=== PATIENT | male | born 1965 | race Caucasian/White ===

== ENCOUNTER 2017-01-26 10:03 | Emergency (ER) | payer MEDICARE ==
[2017-01-26 10:42] LABS: BASOPHILS 0.3 %; BASOPHILS ABSOLUTE 0.02 10/3/uL (0.0-0.16); EOSINOPHILS 3.2 %; HEMATOCRIT 42.6 % (40.0-51.0); HEMOGLOBIN 14.6 g/dL (13.6-17.8); IMMATURE GRANULOCYTES 0.2 %; IMMATURE GRANULOCYTES ABSOLUTE 0.01 10/3/uL (0.0-0.11); LYMPHOCYTES 22.8 %; LYMPHOCYTES ABSOLUTE 1.41 10/3/uL (0.67-4.30); MEAN CORPUS HGB CONC 34.3 g/dL (32.0-36.0); MEAN CORPUSCULAR HEMOGLOB 28.5 pg (26.0-34.0); MONOCYTES 11.2 %; MONOCYTES ABSOLUTE 0.69 10/3/uL (0.21-1.20); NEUTROPHILS 62.3 %; NEUTROPHILS ABSOLUTE 3.85 10/3/uL (2.02-8.40); PLATELET COUNT 349 10/3/uL (150-400); RBC DISTRIBUTION WIDTH 13.6 % (12.0-16.0); RED CELL COUNT 5.13 10/6/uL (4.7-6.1); WHITE BLOOD CELLS 6.2 10/3/uL (4.5-10.5)
[2017-01-26 10:43] LABS: MANUAL DIFF NO %
[2017-01-26 10:46] LABS: INTERNATIONAL NORMAL RATI 1.1 UNITS (-); PROTIME (NOT ORD) 14.1 SEC (12.0-14.5)
[2017-01-26 10:56] LABS: ALBUMIN 3.5 G/DL (3.5-5.0); ALKALINE PHOSPHATASE 113 U/L (45-117); BUN (BLOOD UREA NITROGEN) 19 MG/DL (6-23); CALCIUM, SERUM 8.8 MG/DL (8.5-10.4); CHLORIDE, SERUM 108 MMOL/L (96-112); CO2 (CARBON DIOXIDE) 24 MMOL/L (24-34); CREATININE 0.99 MG/DL (0.70-1.30); GFR AFRICAN AMERICAN 103 ML/MIN (>=60); GFR NON AFRICAN AMERICAN 89 ML/MIN (>=60); GLOBULIN 3.6 G/DL (2.5-4.1); GLUCOSE, SERUM 93 MG/DL (60-99); POTASSIUM, SERUM 3.6 MMOL/L (3.5-5.3); SGOT(AST) 22 U/L (5-40); SGPT(ALT) 19 U/L (5-65); SODIUM, SERUM 142 MMOL/L (135-148); TOTAL BILIRUBIN 0.3 MG/DL (0-1.2); TOTAL PROTEIN 7.1 G/DL (6.0-8.5); TROPONIN I 0.02 NG/ML (<0.05)
== END 2017-01-26 12:15 | disposition home or self-care (01) ==
LOC: ER 10:03
PROVIDERS: Emergency Medicine
DX: I10 Essential (primary) hypertension (principal); R55 Syncope and collapse; M79.606 Pain in leg, unspecified; R53.1 Weakness; I25.2 Old myocardial infarction; Z95.5 Presence of coronary angioplasty implant and graft
CPT/HCPCS: 70450; 71010; 80053; 84484; 85025; 85610; 93005; 96374; 99285; A9270-GY; J1885

== ENCOUNTER 2017-01-31 18:19 | Emergency (ER) | payer MEDICARE ==
[2017-01-31 18:46] LABS: BASOPHILS 0.2 %; BASOPHILS ABSOLUTE 0.02 10/3/uL (0.0-0.16); EOSINOPHILS 1.1 %; EOSINOPHILS ABSOLUTE 0.13 10/3/uL (0.0-0.53); ER CBC TAT 0 Hrs 07 Mins; HEMATOCRIT 46.2 % (40.0-51.0); HEMOGLOBIN 15.6 g/dL (13.6-17.8); IMMATURE GRANULOCYTES 0.1 %; IMMATURE GRANULOCYTES ABSOLUTE 0.01 10/3/uL (0.0-0.11); LYMPHOCYTES 7.7 %; LYMPHOCYTES ABSOLUTE 0.91 10/3/uL (0.67-4.30); MANUAL DIFF NO %; MEAN CORPUS HGB CONC 33.8 g/dL (32.0-36.0); MEAN CORPUSCULAR HEMOGLOB 28.4 pg (26.0-34.0); MEAN CORPUSCULAR VOLUME 84.2 fL (80-100); MEAN PLATELET VOLUME 9.3 fL (9.2-13.0); MONOCYTES ABSOLUTE 0.95 10/3/uL (0.21-1.20); NEUTROPHILS 82.9 %; NEUTROPHILS ABSOLUTE 9.86 10/3/uL (2.02-8.40); PLATELET COUNT 370 10/3/uL (150-400); RBC DISTRIBUTION WIDTH 13.8 % (12.0-16.0); RED CELL COUNT 5.49 10/6/uL (4.7-6.1); WHITE BLOOD CELLS 11.9 10/3/uL (4.5-10.5)
[2017-01-31 18:55] LABS: INTERNATIONAL NORMAL RATI 1.1 UNITS (-); PROTIME (NOT ORD) 13.6 SEC (12.0-14.5)
[2017-01-31 18:56] LABS: PARTIAL THROMBO TIME 30.1 SEC (22.5-37.2)
[2017-01-31 19:02] LABS: BUN (BLOOD UREA NITROGEN) 16 MG/DL (6-23); CALCIUM, SERUM 9.2 MG/DL (8.5-10.4); CHEST PAIN PROFILE TAT 0 Hrs 23 Mins; CHLORIDE, SERUM 103 MMOL/L (96-112); CO2 (CARBON DIOXIDE) 26 MMOL/L (24-34); CREATININE 0.81 MG/DL (0.70-1.30); GFR AFRICAN AMERICAN 121 ML/MIN (>=60); GFR NON AFRICAN AMERICAN 104 ML/MIN (>=60); GLUCOSE, SERUM 95 MG/DL (60-99); POTASSIUM, SERUM 3.7 MMOL/L (3.5-5.3); SODIUM, SERUM 140 MMOL/L (135-148); TROPONIN I <0.02 NG/ML (<0.05)
== END 2017-02-01 02:19 | disposition home or self-care (01) ==
LOC: ER 18:19
PROVIDERS: Emergency Medicine
DX: K50.90 Crohn's disease, unspecified, without complications (principal); Z87.891 Personal history of nicotine dependence; I25.2 Old myocardial infarction; I10 Essential (primary) hypertension; Z98.61 Coronary angioplasty status
CPT/HCPCS: 71020; 80048; 83735; 84484; 85025; 85610; 85730; 93005; 96374; 96375; 99285; J1170; J1980; J2405; J2920

== ENCOUNTER 2017-04-24 17:05 | Emergency (ER) | payer MEDICARE ==
[2017-04-24 16:17] LABS: BASOPHILS 0.1 %; BASOPHILS ABSOLUTE 0.01 10/3/uL (0.0-0.16); EOSINOPHILS 1.7 %; EOSINOPHILS ABSOLUTE 0.12 10/3/uL (0.0-0.53); HEMOGLOBIN 12.8 g/dL (13.6-17.8); IMMATURE GRANULOCYTES 0.3 %; IMMATURE GRANULOCYTES ABSOLUTE 0.02 10/3/uL (0.0-0.11); LYMPHOCYTES 12.7 %; MANUAL DIFF NO %; MEAN CORPUS HGB CONC 32.8 g/dL (32.0-36.0); MEAN CORPUSCULAR HEMOGLOB 26.5 pg (26.0-34.0); MEAN CORPUSCULAR VOLUME 80.7 fL (80-100); MEAN PLATELET VOLUME 9.3 fL (9.2-13.0); MONOCYTES 11.3 %; NEUTROPHILS 73.9 %; NEUTROPHILS ABSOLUTE 5.24 10/3/uL (2.02-8.40); PLATELET COUNT 340 10/3/uL (150-400); RBC DISTRIBUTION WIDTH 17.6 % (12.0-16.0); RED CELL COUNT 4.83 10/6/uL (4.7-6.1); WHITE BLOOD CELLS 7.1 10/3/uL (4.5-10.5)
[2017-04-24 16:30] LABS: BUN (BLOOD UREA NITROGEN) 15 MG/DL (6-23); CALCIUM, SERUM 8.4 MG/DL (8.5-10.4); CHLORIDE, SERUM 110 MMOL/L (96-112); CO2 (CARBON DIOXIDE) 27 MMOL/L (24-34); CREATININE 0.74 MG/DL (0.70-1.30); GFR AFRICAN AMERICAN 125 ML/MIN (>=60); GFR NON AFRICAN AMERICAN 108 ML/MIN (>=60); GLUCOSE, SERUM 93 MG/DL (60-99); POTASSIUM, SERUM 4.1 MMOL/L (3.5-5.3); SODIUM, SERUM 141 MMOL/L (135-148)
== END 2017-04-24 19:23 | disposition home or self-care (01) ==
LOC: ER 17:05
PROVIDERS: Nurse Practitioner
DX: S09.90XA Unspecified injury of head, initial encounter (principal); R07.9 Chest pain, unspecified; M54.2 Cervicalgia; R10.9 Unspecified abdominal pain; M25.522 Pain in left elbow; I10 Essential (primary) hypertension; I25.2 Old myocardial infarction; F17.200 Nicotine dependence, unspecified, uncomplicated; Z95.5 Presence of coronary angioplasty implant and graft; W11.XXXA Fall on and from ladder, initial encounter
CPT/HCPCS: 70450; 71260; 72125; 73080-LT; 74177; 80048; 85025; 93005; 96374; 96375; 96376; 99285; J1170; J2405; Q9967

== ENCOUNTER 2017-04-28 16:29 | Inpatient (IN) | payer MEDICARE ==
--- NOTE | ~2017-04-28 | HP ---
History And Physical [id number] [facility] [place]. [address] NAME: BENITO MILLER : 69 STATUS : ADM Raphael PAT#: [id number] AGE: 52 ADM/REG DATE : 04/28/17 MR#: [id number] REPORT SERV DATE: 04/29/17 DICTATED BY: RANCHO CORLEY DATE: 04/28/17 REPORT STATUS : Draft TRANSCRIBED BY: MODL DATE: 04/28/17 DATE OF ADMISSION: 04/28/2017 CHIEF COMPLAINT: Abdominal pain, nausea with vomiting. HISTORY OF PRESENT ILLNESS: This is a 52-year-old male with a history of Crohn's disease for about five years now; history of colon cancer, status post partial colectomy, who also has coronary artery disease with stents and hypertension who presents to the emergency room at [facility] with the above-mentioned complaint. History is obtained from the patient and reviewing data available on the [employer] system. According to Mr. Miller, he was initially here on Saturday to this emergency room after he fell off a ladder. At that time, he had some cramping in his abdomen which had been there for about two days then, he was evaluated for all skeletal injuries and discharged to home. The next day, was when he started having lower abdominal cramping pain which slowly increased in intensity over the next couple of days. Saturday and Saturday, the pain actually got to a point where it was unbearable, and Saturday, he said, he was unable to keep anything down and had been vomiting constantly. He has also been burping, unable to pass gas, and is in considerable discomfort and pain. It was also associated with shaking chills on Saturday. Saturday, he decided to come to the emergency room to be evaluated. In the emergency room, initial workup revealed moderate severity partial small-bowel obstruction, possibly due to a flare up of his inflammatory bowel disease. Hospitalist Service is asked to admit him for further evaluation and treatment. He also had uncontrolled hypertension. At the time of my evaluation, he denied any chest pain or palpitations. He had no orthopnea. He was in considerable discomfort from his abdominal pain which was cramping colicky in nature and bound him up. He denied any cough, hemoptysis, night sweats, or weight loss. He has not had any recent loss of consciousness, although he fell off ladder. He did have chills, but has not recorded any temperatures. Did have nausea and vomiting which was essentially bilious stuff. No history of hematemesis, hematochezia, or hematuria at this time. No other history of recent travel or exposures other than those mentioned above. PAST MEDICAL HISTORY: Significant for Crohn's disease which he has had for about five years now. He had been tried earlier at different place on Humira and Remicade, and with both, he went into renal failure and had to be transferred to [place] for inpatient treatment. However, he recovered. He has essential hypertension, coronary artery disease with stent placement, and history of colon cancer, status post partial colectomy. He also has a history of appendectomy, cholecystectomy, and an L4-S1 fusion. SOCIAL HISTORY: He has about 25- to 09-[id number] year history of smoking, continues to do so. Does not use alcohol or any recreational drugs. He is disabled at this time. FAMILY HISTORY: Noncontributory. History And Physical [address] [address] NAME: BENITO MILLER : [birth year] STATUS : ADM Raphael PAT#: [id number] AGE: 52 ADM/REG DATE : 04/28/17 MR#: [id number] REPORT SERV DATE: 04/29/17 DICTATED BY: RANCHO CORLEY DATE: 04/28/17 REPORT STATUS : Draft TRANSCRIBED BY: GUNNER DATE: 04/28/17 MEDICATIONS: At home were reviewed by me in the chart today and reordered by me. REVIEW OF SYSTEMS: As in history of present illness. All other systems were reviewed in detail and are quite unremarkable. PHYSICAL EXAMINATION: GENERAL: This is a pleasant 52-year-old, not in any acute distress. HEENT: His head is atraumatic, normocephalic. He is alert, awake, and oriented to time, place, and person. HEENT: His pupils are equal, reacting to light, and accommodating. External ocular muscles are intact. Membranes are moist and pink. Sclerae are nonicteric. NECK: Supple with no jugular venous distention, lymphadenopathy, or thyromegaly. LUNGS: Clear to auscultation with no wheezes, rubs, or crackles. HEART: Heart sounds are regular with no murmurs, rubs, or gallops. ABDOMEN: Soft, nontender. Bowel sounds present. EXTREMITIES: Show no cyanosis, clubbing, or edema. NEUROLOGIC: Grossly intact. No focal sensory or motor deficits. He is able to move all four extremities. Gait was not examined. VITAL SIGNS: His temperature today is 97.6, pulse 78, respirations 18 a minute, blood pressure is 144/72, oxygen saturations are 100% on room air. LABORATORY DATA: Reviewed on the [employer] system showed a normal CMP with a glucose of 103. Albumin was 3.4, alkaline phosphatase 127, ALT and AST were within normal limits. Lipase was 121. CBC was essentially within normal limits. His white blood cell count was 8700. Urinalysis was grossly unremarkable. Films of the CT scan of his abdomen and pelvis were reviewed by me on the PACS and official radiology report by Dr. Gomes was also reviewed. According to his report, there is moderate severity partial small-bowel obstruction, most possibly due to a flare-up of his Crohn's disease. IMPRESSION: 1. Abdominal pain. 2. Partial small-bowel obstruction. 3. Crohn's disease with exacerbation. 4. Uncontrolled hypertension. 5. Coronary artery disease with stents. 6. History of colon cancer, status post partial colectomy. PLAN: We will admit Mr. Miller to the Hospitalist Service to the Med/Surg telemetry unit for a 24-hour observation period. We will keep him n.p.o. at this time, start him on IV fluids for volume resuscitation. We will also place an NG tube to decompress his abdomen and then go ahead and consult Gastroenterology Service to evaluate him in the morning. He has recently moved to [facility] and has not established care with any microsoft windows engineer in this area. Meanwhile, we will go ahead and start him on intravenous glucocorticoids and History And Physical [address] [place]. [address] NAME: BENITO MILLER : [birth year] STATUS : ADM Raphael PAT#: [id number] AGE: 52 ADM/REG DATE : 04/28/17 MR#: [id number] REPORT SERV DATE: 04/29/17 DICTATED BY: RANCHO CORLEY DATE: 04/28/17 REPORT STATUS : Draft TRANSCRIBED BY: GUNNER DATE: 04/28/17 IV antibiotics to include metronidazole and a fluoroquinolone. We will also go ahead and consult General Surgery due to his partial small-bowel obstruction. I am concerned that he has not passed any gas in more than three days according to him. For his blood pressure control, we will restart him on his medications and provide hydralazine intravenously on an as-needed basis. Mr. Miller admits to not being very compliant with his medications. I have encouraged him to change his ways and become more compliant with medications as he presented today with blood pressure of 219/103. Since then, it had dropped. This could also be from pain. We will go ahead and establish pain control with morphine intravenously on small frequent doses on an as needed basis. We will also place him on unfractionated heparin for DVT prophylaxis while here. We will follow all this with repeat chemistry and CBC in the morning. I have discussed the above plans with the patient. His questions were answered and he is agreeable to the above recommendations. Hospitalist Service will be following him during his stay here. /GUNNER Rancho Corley M.D. / [id number] CC: Elisa Gaines M.D.
--- NOTE | ~2017-04-28 | DS ---
Discharge Summary [address] [place]. [address] NAME: BENITO MILLER : [birth year] STATUS : DIS IN PAT#: [id number] AGE: 52 ADM/REG DATE : 04/29/17 MR#: [id number] REPORT SERV DATE: 05/01/17 DICTATED BY: OTIS GARCIA DATE: 05/01/17 REPORT STATUS : Draft TRANSCRIBED BY: MODL DATE: 05/01/17 ADMISSION DATE: 04/29/2017 DISCHARGE DATE: 05/01/2017 DISCHARGE DIAGNOSES: 1. Partial small bowel obstruction. 2. Acute exacerbation of Crohn's disease. 3. Hypertension. 4. Allergic rhinitis. CONSULTANTS DURING THIS HOSPITALIZATION: Dr. Donald Varela of Gastroenterology. INVASIVE PROCEDURES DONE DURING THIS HOSPITALIZATION: None. BRIEF HISTORY OF PRESENT ILLNESS: The patient is a 52-year-old white male with known Crohn's disease, presented with abdominal pain, nausea, and vomiting. For detailed history and physical exam, please see note dictated by Dr. Rancho Quintana on 04/29/2017. HOSPITAL COURSE: After being admitted to the hospital, initially, the patient was kept n.p.o., small bowel follow-through was ordered which revealed transit time to be two hours. There were several abnormal distended loops of small intestines that are not producing severe obstruction, the most prominent one is located in the left lower quadrant and correlates with the findings of the CT scan consistent with Crohn's disease. There is also some distention of the loops of small intestine in the right abdomen identified at the two- hour image. Additional images were obtained, five hours and nine hours. The abnormalities in the small bowel within the left lower quadrant are still visible on the nine-hour image. This patient also had multiple stools. He was tolerating a diet and he feels well enough and he wants to go home and recover in the outpatient setting. DISCHARGE DISPOSITION: Home. DISCHARGE ACTIVITY: As tolerated. DISCHARGE DIET: GI soft. DISCHARGE MEDICATIONS: Lisinopril 20 mg twice daily, Claritin 10 mg once daily, prednisone taper as per GI, Lialda 4.8 g p.o. with breakfast, Flagyl 500 mg t.i.d., hydrochlorothiazide 25 mcg once daily, artificial tears. DISCHARGE FOLLOWUP: With Dr. Juan Frey in four weeks. With primary care physician as needed. More than 30 minutes spent planning this patient's discharge, reconciling medications, writing prescriptions, discussing hospital care, and followup with the patient and documenting this discharge. Discharge Summary [address] [place] [place]. [address] NAME: BENITO MILLER : 69 STATUS : DIS IN PAT#: [id number] AGE: 52 ADM/REG DATE : 04/29/17 MR#: [id number] REPORT SERV DATE: 05/01/17 DICTATED BY: OTIS GARCIA DATE: 05/01/17 REPORT STATUS : Draft TRANSCRIBED BY: GUNNER DATE: 05/01/17 DICTATED BY: Lina Sagastume/GUNNER Otis Garcia M.D. / [id number] CC: Lina Sagastume M.D.
--- NOTE | ~2017-04-28 | CN ---
Consultation Report [facility] [address] [place]. [address] NAME: BENITO MILLER : 69 STATUS : ADM IN PAT#: [id number] AGE: 52 ADM/REG DATE : 04/29/17 MR#: [id number] REPORT SERV DATE: 04/29/17 DICTATED BY: HEENA LAND DATE: 04/29/17 REPORT STATUS : Draft TRANSCRIBED BY: MODL DATE: 04/29/17 GI CONSULTATION DATE OF CONSULTATION: 04/29/2017 REASON FOR CONSULTATION: Evaluation and management of Crohn's disease and partial small bowel obstruction. HISTORY OF PRESENT ILLNESS: Mr. Miller is a 52-year-old male patient, whom we have received in consultation to see for Crohn's disease. He is new to our service. He came into [facility] with a chief complaint of abdominal pain, cramps, nausea and vomiting. He has a history of Crohn's disease. He reports diagnosis roughly five years ago as well as a history of colon cancer status post chemotherapy as well as partial colectomy per his report. He states that he has had abdominal cramping for several days. He was seen in the [facility] emergency room on 04/24/2017, that he incurred a fall from a ladder. His CT scan did show up on 04/24/2017 some dilation of a small intestine; however, he was subsequently discharged home only to return with what he states as increased cramping. No bowel movement for the last five days which he typically states he has loose stools. The pain became unbearable, he was unable to pass gas. He had associated nausea and some shaking chills, but no documented fever. He underwent a CT scan on admission, no contrast, which did show abnormal small bowel pattern with multiple short segments of dilated small bowel with intervening short segments of decreased caliber of small bowel as well as multiple segments of thickened nondilated small-bowel and hazy infiltration of the small bowel mesentery suspect secondary to a flare of his inflammatory bowel disease. He had nondilated large bowel throughout. The patient states that he has had a recent lengthy hospitalization initially that began at [facility] in [place], [place]; and subsequently was transferred to [facility], this was in 2016, which he states was secondary to his Crohn's disease. He states he was in [place] for roughly 60 days. He was discharged there on an oral medication for his Crohn's, but states that secondary to cost, he has not been on any type of medication for his Crohn's for several months. He states to me that he takes daily prednisone roughly 20 mg, and has done this for the last three to four years. He has a history of possibly being on Humira and Remicade dictated by the hospitalist, but he did not mention either one of these medications to me. He states his last colonoscopy was while he was in the [facility] last year. He also tells me that he has a diagnosis of Crohn's as well as ulcerative colitis. I have discussed with him based on CT findings, we will continue his steroids. We will obtain serial KUBs, possibility of a small-bowel follow-through, as well as start him on mesalamine product. He also states that he smokes which I have encouraged cessation. PAST MEDICAL HISTORY: Positive for Crohn's and questionable ulcerative colitis, colon cancer status post chemotherapy, hypertension, coronary artery disease with cardiac stents, recent fall, tobacco abuse, CT, and chipped bone in the left elbow. PAST SURGICAL HISTORY: Includes appendectomy, cholecystectomy, partial bowel resection, and Consultation Report [address] [place]. [address] NAME: BENITO MILLER : 69 STATUS : ADM IN [facility]#: [id number] AGE: 52 ADM/REG DATE : 04/29/17 MR#: [id number] REPORT SERV DATE: 04/29/17 DICTATED BY: HEENA LAND DATE: 04/29/17 REPORT STATUS : Draft TRANSCRIBED BY: GUNNER DATE: 04/29/17 back surgery. FAMILY HISTORY: Noncontributory from a GI standpoint, specifically he denies inflammatory bowel disease. SOCIAL HISTORY: He is disabled. Works at odd jobs. He denies any illicit drugs. He states occasional alcohol. Positive for tobacco use. ALLERGIES: NO KNOWN ALLERGIES. HOME MEDICATIONS: Artificial Tears, Claritin, prednisone, hydrochlorothiazide, and lisinopril. REVIEW OF SYSTEMS: A 10-point review of systems has been obtained with pertinent positives being addressed in the history of present illness. PHYSICAL EXAMINATION: VITAL SIGNS: Temperature 98.3, pulse 90, respirations 21, and blood pressure 128/77. NEUROLOGIC: Reveals an alert, male, resting in bed with no obvious focal deficits. GENERAL: Cooperative, in no apparent distress. PSYCH: Awake, alert, and oriented x3. HEAD, EARS, EYES, NOSE, AND THROAT: Anicteric. Pupils are equal, round, and reactive to light and accommodation. Normocephalic and atraumatic. NECK: No JVD. No palpable nodes. CARDIOVASCULAR SYSTEM: Regular rate and rhythm. S1 and S2. No murmurs, rubs, gallops, S3, or S4 appreciated. ABDOMEN: Soft and nondistended. He has very minimal tenderness to palpation without rebound or guarding. No organomegaly was appreciated. He does have active bowel sounds in all four quadrants. EXTREMITIES: No edema. Normal distal pulses. SKIN: Warm, dry, and intact. PERTINENT LABORATORY DATA: Sodium 140, potassium 4.3, BUN is 17, and creatinine is 0.73. White count was 7.1, hemoglobin 12.7, hematocrit 39.2, and platelet count 346. Total bilirubin 0.3. Alkaline phosphatase 127, ALT 35, and AST 30. ASSESSMENT: 1. Abdominal pain, cramping. 2. Partial small bowel obstruction. 3. Crohn's disease with exacerbation. 4. History of colon cancer status post chemo and questionable bowel resection. PLAN: 1. Repeat KUB and obtain serial imaging daily. Consultation Report [address] [place]. [address] NAME: BENITO MILLER : 69 STATUS : ADM IN PAT#: [id number] AGE: 52 ADM/REG DATE : 04/29/17 MR#: [id number] REPORT SERV DATE: 04/29/17 DICTATED BY: HEENA LAND DATE: 04/29/17 REPORT STATUS : Draft TRANSCRIBED BY: MODL DATE: 04/29/17 2. We will check a sedimentation rate and C-reactive protein. 3. We will obtain records from [facility]. 4. We will begin him on Lialda 4.8 g p.o. daily. 5. Pain and nausea control. 6. We will decrease his steroids to 20 mg IV q.6. 7. Questionable small-bowel follow-through at some point; however, Surgery is following him also and we will likely defer to their expertise. We will follow. ROD/GUNNER Olga NICKY Watt / [id number] CC: Chet Steven M.D.
[2017-04-28 16:52] LABS: BASOPHILS 0.3 %; BASOPHILS ABSOLUTE 0.03 10/3/uL (0.0-0.16); EOSINOPHILS 3.6 %; EOSINOPHILS ABSOLUTE 0.31 10/3/uL (0.0-0.53); ER CBC TAT 0 Hrs 07 Mins; HEMATOCRIT 41.9 % (40.0-51.0); HEMOGLOBIN 13.7 g/dL (13.6-17.8); IMMATURE GRANULOCYTES 0.2 %; IMMATURE GRANULOCYTES ABSOLUTE 0.02 10/3/uL (0.0-0.11); LYMPHOCYTES 15.2 %; LYMPHOCYTES ABSOLUTE 1.33 10/3/uL (0.67-4.30); MEAN CORPUS HGB CONC 32.7 g/dL (32.0-36.0); MEAN CORPUSCULAR HEMOGLOB 26.4 pg (26.0-34.0); MEAN CORPUSCULAR VOLUME 80.7 fL (80-100); MEAN PLATELET VOLUME 9.2 fL (9.2-13.0); MONOCYTES 10.7 %; MONOCYTES ABSOLUTE 0.93 10/3/uL (0.21-1.20); NEUTROPHILS ABSOLUTE 6.11 10/3/uL (2.02-8.40); PLATELET COUNT 393 10/3/uL (150-400); RBC DISTRIBUTION WIDTH 17.5 % (12.0-16.0); RED CELL COUNT 5.19 10/6/uL (4.7-6.1); WHITE BLOOD CELLS 8.7 10/3/uL (4.5-10.5)
[2017-04-28 16:53] LABS: MANUAL DIFF NO %
[2017-04-28 17:03] LABS: ALBUMIN 3.4 G/DL (3.5-5.0); ALKALINE PHOSPHATASE 127 U/L (45-117); BUN (BLOOD UREA NITROGEN) 25 MG/DL (6-23); CALCIUM, SERUM 8.9 MG/DL (8.5-10.4); CHLORIDE, SERUM 110 MMOL/L (96-112); CO2 (CARBON DIOXIDE) 25 MMOL/L (24-34); CREATININE 0.86 MG/DL (0.70-1.30); GFR AFRICAN AMERICAN 117 ML/MIN (>=60); GFR NON AFRICAN AMERICAN 101 ML/MIN (>=60); GLOBULIN 3.5 G/DL (2.5-4.1); GLUCOSE, SERUM 103 MG/DL (60-99); POTASSIUM, SERUM 4.1 MMOL/L (3.5-5.3); SGOT(AST) 30 U/L (5-40); SGPT(ALT) 35 U/L (5-65); SODIUM, SERUM 141 MMOL/L (135-148); TOTAL BILIRUBIN 0.3 MG/DL (0-1.2); TOTAL PROTEIN 6.9 G/DL (6.0-8.5)
[2017-04-28 17:25] LABS: ASCORBIC ACID (UR NOT ORDER) NEG (NEG); BILIRUBIN, URINE SMALL (NEG); ER URINALYSIS TAT 0 Hrs 09 Mins; KETONE, URINE TRACE MG/DL (NEG); LEUKOCYTE ESTERASE(NOT OR NEG (NEG); NITRITE (URINE) NEG (NEG); WBC (NOT ORDERED) (RFLEX) 1 (0-5)
[2017-04-28] MEDS ORDERED: HYDROCHLOROT25 MG PO (20:26)
[2017-04-28] MEDS ORDERED: PRIN20 PO (20:27)
[2017-04-28] MEDS ORDERED: CLARIT10 PO (20:27)
[2017-04-28] MEDS ORDERED: TEARS PLUS OPH (20:27)
[2017-04-28] MEDS ORDERED: P20 PO (20:27)
[2017-04-29 04:43] LABS: BASOPHILS 0 %; EOSINOPHILS 0 %; HEMATOCRIT 39.2 % (40.0-51.0); HEMOGLOBIN 12.7 g/dL (13.6-17.8); IMMATURE GRANULOCYTES 0.1 %; IMMATURE GRANULOCYTES ABSOLUTE 0.01 10/3/uL (0.0-0.11); LYMPHOCYTES 6.5 %; LYMPHOCYTES ABSOLUTE 0.46 10/3/uL (0.67-4.30); MEAN CORPUS HGB CONC 32.4 g/dL (32.0-36.0); MEAN CORPUSCULAR HEMOGLOB 26.4 pg (26.0-34.0); MEAN CORPUSCULAR VOLUME 81.5 fL (80-100); MEAN PLATELET VOLUME 9.1 fL (9.2-13.0); MONOCYTES 0.7 %; MONOCYTES ABSOLUTE 0.05 10/3/uL (0.21-1.20); NEUTROPHILS 92.7 %; NEUTROPHILS ABSOLUTE 6.58 10/3/uL (2.02-8.40); PLATELET COUNT 346 10/3/uL (150-400); RBC DISTRIBUTION WIDTH 17.2 % (12.0-16.0); RED CELL COUNT 4.81 10/6/uL (4.7-6.1); WHITE BLOOD CELLS 7.1 10/3/uL (4.5-10.5)
[2017-04-29 04:44] LABS: MANUAL DIFF NO %
[2017-04-29 04:58] LABS: BUN (BLOOD UREA NITROGEN) 17 MG/DL (6-23); CALCIUM, SERUM 8.7 MG/DL (8.5-10.4); CHLORIDE, SERUM 108 MMOL/L (96-112); CO2 (CARBON DIOXIDE) 25 MMOL/L (24-34); CREATININE 0.73 MG/DL (0.70-1.30); GFR AFRICAN AMERICAN 125 ML/MIN (>=60); GFR NON AFRICAN AMERICAN 108 ML/MIN (>=60); GLUCOSE, SERUM 116 MG/DL (60-99); PHOSPHORUS, SERUM 2.2 MG/DL (2.5-4.5); POTASSIUM, SERUM 4.3 MMOL/L (3.5-5.3); SODIUM, SERUM 140 MMOL/L (135-148)
[2017-04-29 17:59] LABS: PHOSPHORUS, SERUM 4.2 MG/DL (2.5-4.5)
[2017-04-29 18:37] LABS: C-REACTIVE PROTEIN 43.4 MG/L (<8.0)
[2017-04-30 04:38] LABS: BASOPHILS 0.2 %; BASOPHILS ABSOLUTE 0.01 10/3/uL (0.0-0.16); EOSINOPHILS 0 %; HEMOGLOBIN 11.2 g/dL (13.6-17.8); IMMATURE GRANULOCYTES 0.2 %; IMMATURE GRANULOCYTES ABSOLUTE 0.01 10/3/uL (0.0-0.11); LYMPHOCYTES 10.6 %; LYMPHOCYTES ABSOLUTE 0.54 10/3/uL (0.67-4.30); MEAN CORPUS HGB CONC 33.2 g/dL (32.0-36.0); MEAN CORPUSCULAR HEMOGLOB 26.9 pg (26.0-34.0); MEAN CORPUSCULAR VOLUME 80.8 fL (80-100); MEAN PLATELET VOLUME 9.4 fL (9.2-13.0); MONOCYTES 3.3 %; MONOCYTES ABSOLUTE 0.17 10/3/uL (0.21-1.20); NEUTROPHILS 85.7 %; NEUTROPHILS ABSOLUTE 4.37 10/3/uL (2.02-8.40); PLATELET COUNT 334 10/3/uL (150-400); RBC DISTRIBUTION WIDTH 17.1 % (12.0-16.0); RED CELL COUNT 4.17 10/6/uL (4.7-6.1); WHITE BLOOD CELLS 5.1 10/3/uL (4.5-10.5)
[2017-04-30 04:40] LABS: HEMATOCRIT 33.7 % (40.0-51.0); MANUAL DIFF NO %
[2017-04-30 04:52] LABS: BUN (BLOOD UREA NITROGEN) 18 MG/DL (6-23); CALCIUM, SERUM 8.3 MG/DL (8.5-10.4); CHLORIDE, SERUM 111 MMOL/L (96-112); CO2 (CARBON DIOXIDE) 25 MMOL/L (24-34); CREATININE 0.65 MG/DL (0.70-1.30); GFR AFRICAN AMERICAN 131 ML/MIN (>=60); GFR NON AFRICAN AMERICAN 113 ML/MIN (>=60); GLUCOSE, SERUM 129 MG/DL (60-99); POTASSIUM, SERUM 4.1 MMOL/L (3.5-5.3); SODIUM, SERUM 143 MMOL/L (135-148)
[2017-04-30 04:55] LABS: PHOSPHORUS, SERUM 2.9 MG/DL (2.5-4.5)
[2017-05-01 07:21] LABS: BASOPHILS 0 %; EOSINOPHILS 0 %; HEMATOCRIT 33.3 % (40.0-51.0); HEMOGLOBIN 10.9 g/dL (13.6-17.8); IMMATURE GRANULOCYTES 0.3 %; IMMATURE GRANULOCYTES ABSOLUTE 0.02 10/3/uL (0.0-0.11); LYMPHOCYTES 6.5 %; LYMPHOCYTES ABSOLUTE 0.38 10/3/uL (0.67-4.30); MEAN CORPUS HGB CONC 32.7 g/dL (32.0-36.0); MEAN CORPUSCULAR HEMOGLOB 26.6 pg (26.0-34.0); MEAN CORPUSCULAR VOLUME 81.2 fL (80-100); MEAN PLATELET VOLUME 9.4 fL (9.2-13.0); MONOCYTES 2.7 %; MONOCYTES ABSOLUTE 0.16 10/3/uL (0.21-1.20); NEUTROPHILS 90.5 %; NEUTROPHILS ABSOLUTE 5.29 10/3/uL (2.02-8.40); PLATELET COUNT 324 10/3/uL (150-400); RBC DISTRIBUTION WIDTH 17.4 % (12.0-16.0); WHITE BLOOD CELLS 5.9 10/3/uL (4.5-10.5)
[2017-05-01 07:23] LABS: MANUAL DIFF NO %
[2017-05-01 07:35] LABS: BUN (BLOOD UREA NITROGEN) 16 MG/DL (6-23); CALCIUM, SERUM 8.1 MG/DL (8.5-10.4); CHLORIDE, SERUM 111 MMOL/L (96-112); CO2 (CARBON DIOXIDE) 25 MMOL/L (24-34); CREATININE 0.78 MG/DL (0.70-1.30); GFR AFRICAN AMERICAN 122 ML/MIN (>=60); GFR NON AFRICAN AMERICAN 105 ML/MIN (>=60); GLUCOSE, SERUM 130 MG/DL (60-99); POTASSIUM, SERUM 4.3 MMOL/L (3.5-5.3); SODIUM, SERUM 142 MMOL/L (135-148)
[2017-05-01] MEDS ORDERED: LIALDA1.2 GM PO (12:16)
[2017-05-01] MEDS ORDERED: FLAG500TAB PO (12:17)
[2017-05-01] MEDS ORDERED: PCET PO (12:17)
[2017-05-01] MEDS ORDERED: STERAPRED DS10 MG (12:18)
== END 2017-05-01 13:17 | disposition home or self-care (01) | DRG 386 ==
LOC: ER 16:29 → CDU1 20:55 → CDU2 21:50 → 5SO 04-30 17:32
PROVIDERS: Emergency Medicine; Internal Medicine; Internal Medicine Pulmonary Disease; Nurse Practitioner Family
DX: K50.112 Crohn's disease of large intestine with intestinal obstruction (principal); I10 Essential (primary) hypertension; F17.210 Nicotine dependence, cigarettes, uncomplicated; I25.10 Atherosclerotic heart disease of native coronary artery without angina pectoris; Z95.5 Presence of coronary angioplasty implant and graft; Z85.038 Personal history of other malignant neoplasm of large intestine; Z90.49 Acquired absence of other specified parts of digestive tract; Z98.890 Other specified postprocedural states; Z79.899 Other long term (current) drug therapy; Z92.21 Personal history of antineoplastic chemotherapy; Z95.1 Presence of aortocoronary bypass graft
CPT/HCPCS: 74000; 74176; 74250; 80048; 80053; 81001; 83605; 83690; 83735; 84100; 85025; 85652; 86140; 96374; 96375; 99285; A9270-GY; J0360; J1170; J1956; J2405; J2920; J2930